=== PATIENT | male | born 1960 | race Two or more races ===

== ENCOUNTER → 2025-07-13 | Outpatient (CLI) | payer MEDICARE, MEDICAID, SELFPAY ==
--- NOTE | 2025-07-13 | XR_ITS ---
Examination: Abdomen AP single view Technique: AP portable supine abdomen, single view Exam date and time: July 13, 2025, 1148 hours INDICATIONS: Abdominal pain one week. FINDINGS: Large amounts of stool in the rectosigmoid Moderate stool throughout the remainder the colon No renal or ureteral calculi Prominent osteopenia IMPRESSION: No renal or ureteral calculi visualized
== END | disposition home or self-care (01) ==
LOC: CDIM 11:04
PROVIDERS: PCP Nurse Practitioner Family; Referring Provider Surgery; Visit Provider Surgery
DX: R10.9 Unspecified abdominal pain (principal)
CPT/HCPCS: 74018